=== PATIENT | male | born 1985 | race Caucasian/White ===

== ENCOUNTER 2016-07-06 22:15 | Emergency (ER) | payer SELFPAY ==
[2016-07-06 23:12] VITALS: BP 129/74; PULSE 79; RESP 18; TEMP 98; O2SAT 100
--- NOTE | 2016-07-07 00:05 | C.PDOC ---
History Of Present Illness Patient presents to the ED complaining of a splinter to the right first finger about a week ago. Patient cut it away. The finger was tender, swollen, red, and had exudates which prompted the patient to visit the ER yesterday. He had blood work done which was negative and was started on Clindamycin. Patient was discharged. Patient is here today because he was worried and wanted to have the finger evaluated again. Patient denies fever, chills, drainage, numbness, or weakness. Time Seen by Provider: 07/07/16 00:04 Chief Complaint (Nursing): Abnormal Skin Integrity History Per: Patient History/Exam Limitations: no limitations Onset/Duration Of Symptoms: Days (1 week), Worse Since (yesterday) Current Symptoms Are (Timing): Still Present Quality Of Symptoms: Painful, Other (redness, swelling) Severity: Mild Pain Scale Rating Of: 3 Recent travel outside of the [place]: No Past Medical History Reviewed: Historical Data, Nursing Documentation, Vital Signs Vital Signs: Last Vital Signs Temp 98.0 F 07/06/16 23:06 Pulse 79 07/06/16 23:06 Resp 18 07/06/16 23:06 BP 129/74 07/06/16 23:06 Pulse Ox 100 07/07/16 00:54 Surgical History: Tonsillectomy - [facility] Procedures DESTRUCT LARYNX LES NEC (01/29/00) LARYGNOSCOPY AND OTH TRACHEOSCOPY (01/29/00) TONSILLECTOMY/ADENOIDEC (01/29/00) Family History: States: No Known Family Hx - Social History Hx Alcohol Use: Yes Hx Substance Use: No - Immunization History Hx Tetanus Toxoid Vaccination: Yes (yesterday) Hx Influenza Vaccination: No Hx Pneumococcal Vaccination: No Review Of Systems Except As Marked, All Systems Reviewed And Found Negative. Constitutional: Negative for: Fever, Chills Musculoskeletal: Positive for: Hand Pain (right) Neurological: Negative for: Weakness, Numbness Physical Exam - Physical Exam Appears: Non-toxic, No Acute Distress Skin: Warm, Dry Head: Atraumatic, Normacephalic Eye(s): bilateral: PERRL, EOMI Neck: Supple Chest: Symmetrical Cardiovascular: Rhythm Regular Respiratory: No Rales, No Rhonchi, No Wheezing Gastrointestinal/Abdominal: Soft, No Tenderness Back: No CVA Tenderness Extremity: Capillary Refill (<2 seconds), No Deformity, No Swelling, Other (PIP joint small area of erythema and small scab, (-)streaks,(+)<2 seconds capillary refill (+)full ROM to fingers (+)normal radial and anticubital fossa pulses; right elbow: small collection of fluid, full ROM, no redness, no tenderness) Extremity: Bilateral: Atraumatic, Normal Color And Temperature Neurological/Psych: Oriented x3 ED Course And Treatment O2 Sat by Pulse Oximetry: 100 (RA) Pulse Ox Interpretation: Normal Disposition Counseled Patient/Family Regarding: Studies Performed, Diagnosis, Need For Followup - Disposition Referrals: Swathi Bar MD [Staff Provider] - Hussein Roque III, MD [Staff Provider] - Disposition: HOME/ ROUTINE Disposition Time: 00:05 Condition: FAIR Additional Instructions: continue and finish the antibiotics. Please return if you have fever,chills, purulent drainage Instructions: Cellulitis (DC), Elbow Bursitis (ED) - Clinical Impression Clinical Impression: Olecranon bursitis, Cellulitis, finger - Scribe Statement The provider has reviewed the documentation as recorded by the Scribe Saima Arzate Provider Attestation: All medical record entries made by the Scribe were at my direction and personally dictated by me. I have reviewed the chart and agree that the record accurately reflects my personal performance of the history, physical exam, medical decision making, and the department course for this patient. I have also personally directed, reviewed, and agree with the discharge instructions and disposition.
== END 2016-07-07 00:53 | disposition home or self-care (01) ==
LOC: C.ER 22:15
DX: L03.011 Cellulitis of right finger (principal); M70.20 Olecranon bursitis, unspecified elbow